=== PATIENT | female | born 2000 | race Caucasian/White ===

== ENCOUNTER 2020-09-16 19:16 | Emergency (ER) | payer OTHER ==
[~2020-09-16] VITALS: Ht 167.6 cm; Wt 61.2 kg
[2020-09-16] MEDS ORDERED: HYDROXYZINE HCL25 M2 PO (19:29)
[2020-09-16] MEDS ORDERED: MAGIC MOUTHWASH SWISH&SPIT (20:09)
[2020-09-16] MEDS ORDERED: PREDNISONE 20 M20 MG PO (20:09)
[2020-09-16 20:41] VITALS: BP 116/79
== END 2020-09-16 20:42 | disposition home or self-care (01) ==
LOC: ER 19:16
DX: J02.0 Streptococcal pharyngitis (principal); Z90.49 Acquired absence of other specified parts of digestive tract; Z88.5 Allergy status to narcotic agent